=== PATIENT | female | born 1955 | race Caucasian/White ===

== ENCOUNTER → 2016-10-15 | Outpatient (CLI) | payer MEDICARE, OTHER | LOC: SLEEP 12:22 | DX: I26.99 Other pulmonary embolism without acute cor pulmonale (principal); O22.30 Deep phlebothrombosis in pregnancy, unspecified trimester; I82.409 Acute embolism and thrombosis of unspecified deep veins of unspecified lower extremity ==

== ENCOUNTER 2021-02-24 15:59 | Emergency (ER) | payer MEDICARE, OTHER ==
[2021-02-24 17:12] LABS: HEMOGLOBIN 12.2 gm/dl (12.3-15.3); RED BLOOD COUNT 4.03 M/UL (4.00-5.10); WHITE BLOOD COUNT 8.8 K/UL (4.5-11.0)
[2021-02-24 17:42] LABS: BUN/CREATININE RATIO 17 (0-10)
[2021-02-24] MEDS ORDERED: MACROBID 100 M100 M1 PO (20:51)
== END 2021-02-24 21:08 | disposition home or self-care (01) ==
LOC: ER1 15:59
PROVIDERS: Family Medicine; Physician Assistant
DX: E86.0 Dehydration (principal); N39.0 Urinary tract infection, site not specified; E78.5 Hyperlipidemia, unspecified; K21.9 Gastro-esophageal reflux disease without esophagitis; Z90.49 Acquired absence of other specified parts of digestive tract; Z20.822 Contact with and (suspected) exposure to COVID-19
CPT/HCPCS: 70450; 80053; 80307; 81001; 82550; 82553; 83874; 84484; 85025; 93005; 99284; U0002

== ENCOUNTER → 2021-03-06 | Outpatient (CLI) | payer MEDICARE, OTHER ==
[~2021-03-06] MED LIST: MACROBID 100 M100 M1 PO
== END ==
LOC: KOH-I 10:15
DX: M79.671 Pain in right foot (principal); M19.071 Primary osteoarthritis, right ankle and foot; S93.14 Subluxation of metatarsophalangeal joint; S93.144D Subluxation of metatarsophalangeal joint of right lesser toe(s), subsequent encounter
CPT/HCPCS: 73630

== ENCOUNTER → 2021-03-07 | Outpatient (CLI) | payer MEDICARE | LOC: LBRF 11:44 | DX: S81.001A Unspecified open wound, right knee, initial encounter (principal) | CPT/HCPCS: 87070; 87077; 87186; 87205 ==

== ENCOUNTER → 2021-03-25 | Outpatient (CLI) | payer MEDICARE | LOC: KOH-I 09:39 | DX: M54.2 Cervicalgia (principal); M47.812 Spondylosis without myelopathy or radiculopathy, cervical region | CPT/HCPCS: 72040 ==

== ENCOUNTER → 2021-06-12 | Outpatient (CLI) | payer MEDICARE | LOC: KOH-I 13:30 | DX: M48.02 Spinal stenosis, cervical region (principal); G96.198 Other disorders of meninges, not elsewhere classified; R53.1 Weakness; M40.202 Unspecified kyphosis, cervical region; M50.10 Cervical disc disorder with radiculopathy, unspecified cervical region; M25.78 Osteophyte, vertebrae; Q06.8 Other specified congenital malformations of spinal cord | CPT/HCPCS: 72125; 72128 ==

== ENCOUNTER → 2021-09-11 | Outpatient (CLI) | payer MEDICARE | LOC: KOH-I 10:02 | DX: J01.81 Other acute recurrent sinusitis (principal); J34.2 Deviated nasal septum | CPT/HCPCS: 70486 ==